=== PATIENT | female | born 1935 | race Two or more races ===

== ENCOUNTER 2019-10-20 17:55 | Inpatient (IN) | payer MEDICARE, MEDICAID ==
[~2019-10-20] VITALS: Ht 170.2 cm; Wt 76.2 kg
--- NOTE | 2019-10-20 18:12 | NUR ---
PT CAME IN FOR L BREAST PAIN "AT THE TIP" PER PT. PT AAO, BREATHING EVEN ADN UNLABORE DON RA W/ NAD NOTED. PT CONNECTED TO THE MONITOR AND POX.
--- NOTE | 2019-10-20 18:28 | NUR ---
EKG AT BEDSIDE
[2019-10-20 18:56] LABS: BASOPHILS # (AUTO) 0.1 /CMM (0.0-0.2); BASOPHILS % (AUTO) 0.9 % (0.0-2.0); EOSINOPHILS % (AUTO) 2.1 % (0.0-6.0); HEMATOCRIT 39 % (33-45); HEMOGLOBIN 12.7 g/dL (11.5-14.8); LYMPHOCYTES # (AUTO) 1.8 /CMM (0.8-4.8); LYMPHOCYTES % (AUTO) 23.8 % (20.0-44.0); MEAN CORPUSCULAR HGB CONC 33 g/dl (31.0-36.0); MEAN CORPUSCULAR VOLUME 96 fL (82-100); MONOCYTES # (AUTO) 0.5 /CMM (0.1-1.30); MONOCYTES % (AUTO) 6.9 % (2.0-12.0); NEUTROPHILS # (AUTO) 4.9 /CMM (1.8-8.9); NEUTROPHILS % (AUTO) 66.3 % (43.0-81.0); PLATELET COUNT (AUTO) 131 /CMM (150-450); RED BLOOD CELL COUNT(AUTO) 4.05 MIL/uL (4.0-5.2); WHITE BLOOD COUNT (AUTO) 7.4 K/uL (4.3-11.0)
[2019-10-20 19:09] LABS: CALCIUM, SERUM 8.6 mg/dL (8.5-10.1); CARBON DIOXIDE 28 mmol/L (21-32); CHLORIDE 104 mmol/L (98-107); CREATININE 1.3 mg/dL (0.6-1.3); GLUCOSE 95 mg/dL (74-106); SODIUM SERUM 139 mmol/L (136-145); UREA NITROGEN, BLOOD 34 mg/dL (7-18)
--- NOTE | 2019-10-20 20:00 | NUR ---
CALLED NURSING SUP FOR TELE BED
--- NOTE | 2019-10-20 20:02 | NUR ---
CALLED [facility], PAGED DR ANTHONY
[2019-10-20] MEDS ORDERED: hydrALAZINE HCL IV 20 MG VIAL IV PRN (21:00)
[2019-10-20] MEDS ORDERED: hydrALAZINE HCL IV 20 MG VIAL ONE (21:08)
--- NOTE | 2019-10-20 21:44 | NUR ---
REPORT GIVEN TO JOESPH HEWITT
[2019-10-20 21:45] VITALS: BP_SYST 100; BP_SYST 177; BP_DIAS 57; BP_DIAS 82
--- NOTE | 2019-10-20 21:45 | NUR ---
RN NOTE: RECEIVED PATIENT FROM ER VIA ACLS PROTOCOL. PATIENT IS AN 84 YEAR OLD FEMALE WITH DX: CHEST PAIN. AAOX3. NO RESPIRATORY DISTRESS. PATIENT'S O2 SAT 98% ON RA, TOLERATING WELL. VITAL SIGNS TAKEN. PLACED ON ORCHID TRANSPLANTER SHOWING NSR. PHOTOS OF SKIN ISSUES TAKEN AND PLACED IN CHART. SAFETY PRECAUTIONS IMPLEMENTED. BED LOCKED, ALARM ON, AND IN LOWEST POSITION. PATIENT USES BEDSIDE COMMODE WITH 1-PERSON ASSIST FOR SAFETY. (R) WRIST G22 LEAKING. IV LINE REMOVED AND WILL REINSERT A NEW IV ACCESS. ALL NEEDS WILL BE ATTENDED TO. PATIENT HAS SIGNED POLST, FULL CODE. DR. ANTHONY MADE AWARE. CALL LIGHT PLACED WITHIN REACH. WILL CONT. TO MONITOR.
--- NOTE | 2019-10-20 21:50 | NUR ---
RN NOTE: PATIENT'S BLOOD PRESSURE IS 177/82 AND HR 72. PATIENT RECEIVED HYDRALAZINE IV IN THE ER AT 2104. WILL CONT. TO MONITOR BP.
[2019-10-20] MEDS ORDERED: MAGNESIUM HYDROXIDE 30 ML UDC PO PRN (22:30)
[2019-10-20] MEDS ORDERED: TEMAZEPAM 15 MG CAPSULE PO PRN (22:30)
[2019-10-20] MEDS ORDERED: ONDANSETRON HCL/PF 4 MG/2 ML VIAL IVP PRN (22:30)
[2019-10-20] MEDS: ACETAMINOPHEN 325 MG TABLET PO PRN (22:44)
[2019-10-20] MEDS: MAG HYDROX/AL HYDROX/SIMETH 30 ML UDC PO PRN (22:44)
[2019-10-20 22:48] LABS: ALBUMIN 3.9 g/dL (3.4-5.0); BILIRUBIN,TOTAL 0.2 mg/dL (0.2-1.0); TOTAL PROTEIN, SERUM 7.4 g/dL (6.4-8.2)
[2019-10-21] VITALS (7 sets, daily range): BP systolic 93–192; BP diastolic 49–158
--- NOTE | 2019-10-21 00:15 | NUR ---
RN NOTE: DR. ANTHONY AT BEDSIDE. MD MADE AWARE THAT PATIENT IS HARD STICK. ATTEMPTED TO INSERT A NEW IV LINE X 2. PER DR. ANTHONY, DO NOT INSERT ANY MORE IV LINES AND STATED HE DOES NOT WANT TO ORDER MIDLINE OR PICC LINE. PATIENT ALSO REFUSED FURTHER IV INSERTION, MIDLINE, OR PICC LINE. RISKS AND CONSEQUENCES EXPLAINED TO PATIENT. PER MD, ONLY INSERT AN IV IF THERE IS AN EMERGENCY. CHARGE NURSE ALSO MADE AWARE AND ANOTHER RN NEO WITNESS. WILL CONT. TO MONITOR FOR CHANGES. Addendum: 10/21/19 at 0031 by MAYUR MARQUEZ RN PATIENT IS AAOX4 AND REFUSING IV INSERTION. Addendum: 10/21/19 at 0756 by MAYUR MARQUEZ RN NOTIFIED DR. ANTHONY THAT PATIENT'S BP REMAINS HIGH, 159/70. NEW ORDER FOR CLONIDINE RECEIVED. NOTED AND CARRIED OUT.
[2019-10-21] MEDS: CLONIDINE HCL 0.1 MG TABLET PO PRN ×2 (00:57→19:51)
[2019-10-21] MEDS ORDERED: HYDROCODONE/APAP 5/325MG 1 EACH TABLET PO PRN (02:00)
[2019-10-21] MEDS ORDERED: AMLO10TA7 PO (03:24)
[2019-10-21] MEDS ORDERED: APIX2.5T PO (03:24)
[2019-10-21] MEDS ORDERED: ALEN70TA6 PO (03:24)
[2019-10-21] MEDS ORDERED: CYCL5TAB PO (03:24)
[2019-10-21] MEDS ORDERED: CALC1TAB90 PO (03:24)
[2019-10-21] MEDS ORDERED: CELE100C PO (03:24)
[2019-10-21] MEDS ORDERED: LOSA25TA27 PO (03:24)
[2019-10-21] MEDS ORDERED: RANI150C4 PO (03:24)
[2019-10-21] MEDS ORDERED: GABA-532 PO (03:24)
[2019-10-21] MEDS ORDERED: AMIO200T4 PO (03:24)
[2019-10-21] MEDS ORDERED: ATOR20TA PO (03:24)
[2019-10-21] MEDS ORDERED: ESCI20TA PO (03:24)
[2019-10-21] MEDS ORDERED: METO50TA16 PO (03:24)
[2019-10-21] MEDS ORDERED: PRIM250T32 PO (03:24)
[2019-10-21] MEDS ORDERED: CYCLOBENZAPRINE 10 MG TABLET PO PRN (06:00)
[2019-10-21] MEDS: MAG HYDROX/AL HYDROX/SIMETH 30 ML UDC PO PRN ×2 (06:49→20:01)
[2019-10-21 07:10] LABS: BASOPHILS % (AUTO) 0.4 % (0.0-2.0); EOSINOPHILS % (AUTO) 2.6 % (0.0-6.0); HEMATOCRIT 37 % (33-45); HEMOGLOBIN 12.2 g/dL (11.5-14.8); LYMPHOCYTES # (AUTO) 1.4 /CMM (0.8-4.8); LYMPHOCYTES % (AUTO) 23.1 % (20.0-44.0); MEAN CORPUSCULAR HGB CONC 33 g/dl (31.0-36.0); MEAN CORPUSCULAR VOLUME 96 fL (82-100); MONOCYTES # (AUTO) 0.4 /CMM (0.1-1.30); MONOCYTES % (AUTO) 7.4 % (2.0-12.0); NEUTROPHILS % (AUTO) 66.5 % (43.0-81.0); PLATELET COUNT (AUTO) 148 /CMM (150-450); RED BLOOD CELL COUNT(AUTO) 3.89 MIL/uL (4.0-5.2)
--- NOTE | 2019-10-21 07:30 | NUR ---
RN OPENING NOTE RECEIVED PATIENT IN STABLE CONDITION FROM NITRIC ACID PLANT OPERATOR NURSE. PATIENT IS A/O X3, ON ROOM AIR SATURATING WELL @ 92%. ON TELE MONITOR WITH SINUS RHYTHM ON THE MONITOR. PATIENT IS ABLE TO MAKE NEEDS KNOWN, USES BED SIDE COMMODE. PATIENT HAS NO IV ACCESS, NITRIC ACID PLANT OPERATOR TRIED PUTTING IN AN IV BUT WAS UNABLE TO, ASKED FOR MIDLINE PLACEMENT, DR SAID IT IS UNNECESSARY, MOST LIKELY WILL BE GOING HOME TODAY IF CLEARED BY RESIDENTIAL BUILDER. SAFETY MAINTAINED, CALL LIGHT WITHIN REACH, WILL CONTINUE TO MONITOR.
--- NOTE | 2019-10-21 07:35 | NUR ---
RN CLOSING NOTES: BEDSIDE REPORT GIVEN TO AM SHIFT NURSE. ENDORSED THAT PATIENT HAS NO IV ACCESS AND REFUSING IV INSERTION. PATIENT IS AAOX4. NO C/O CHEST PAIN AT THIS TIME. SOME MED RECON WAS DONE. DR. ANTHONY AWARE. ENDORSED TO AM SHIFT NURSE FOR CONTINUITY OF CARE AND TO NOTIFY AM MED RECON NURSE TO VERIFY OTHER MEDS.
[2019-10-21 07:37] LABS: CHOLESTEROL 141 mg/dL (<200); HDL CHOLESTEROL 66 mg/dL (40-60); LDL 64 mg/dL (0-99); TRIGLYCERIDES 54 mg/dL (30-150)
[2019-10-21 07:44] LABS: ALANINE AMINOTRANSFERASE 21 U/L (12-78); ALBUMIN 3.4 g/dL (3.4-5.0); ALKALINE PHOSPHATASE 78 U/L (46-116); ASPARTATE AMINOTRANSFERASE 17 U/L (15-37); B-TYPE NATRIURETIC PEPTIDE 508 PG/ML (0-125); BILIRUBIN,TOTAL 0.2 mg/dL (0.2-1.0); CALCIUM, SERUM 8.3 mg/dL (8.5-10.1); CARBON DIOXIDE 26 mmol/L (21-32); CHLORIDE 107 mmol/L (98-107); GLUCOSE 101 mg/dL (74-106); MAGNESIUM 2.1 mg/dL (1.8-2.4); PHOSPHORUS 3.3 mg/dL (2.5-4.9); POTASSIUM 4.3 mmol/L (3.5-5.1); SODIUM SERUM 140 mmol/L (136-145); TOTAL PROTEIN, SERUM 6.4 g/dL (6.4-8.2); UREA NITROGEN, BLOOD 28 mg/dL (7-18)
--- NOTE | 2019-10-21 08:39 | NUR ---
WOUND CARE CONSULT: PT PRESENTS WITH PATCHY RED AREAS TO ELBOWS AND BUTTOCKS WHICH PT STATES IS PSORIASIS. RECOMMENDATIONS MADE FOR SKIN PROTECTION. PT IS CONTINENT AT THIS TIME AND ABLE TO ASSIST WITH TURNING AND REPOSITIONING IN BED. WILL SEE PRN. CURRENT FACUNDO SCORE IS 15. IN AGREEMENT WITH PLAN OF CARE.
[2019-10-21] MEDS ORDERED: ASPIRIN EC 325 MG TABLET.DR PO SCH (09:00)
[2019-10-21] MEDS: ASPIRIN EC 81 MG TABLET.DR PO SCH (09:05)
[2019-10-21] MEDS: ESCITALOPRAM OXALATE (10 MG) 10 MG TABLET PO SCH (09:05)
[2019-10-21] MEDS: AMLODIPINE BESYLATE 10 MG TABLET PO SCH (09:06)
[2019-10-21] MEDS: GABAPENTIN 100 MG CAPSULE PO SCH ×2 (09:06→17:57)
[2019-10-21] MEDS: DOCUSATE SODIUM 100 MG CAPSULE PO SCH ×2 (09:06→17:57)
[2019-10-21] MEDS: PANTOPRAZOLE 40 MG TABLET.DR PO SCH (09:07)
[2019-10-21] MEDS: AMIODARONE HCL 200 MG TABLET PO SCH (09:07)
[2019-10-21] MEDS: FAMOTIDINE (20 MG) 20 MG TABLET PO SCH ×2 (09:07→21:09)
[2019-10-21] MEDS: PRIMIDONE 250 MG TABLET PO SCH (09:08)
[2019-10-21] MEDS: APIXABAN 2.5 MG TABLET PO SCH ×2 (09:08→18:00)
[2019-10-21] MEDS: LOSARTAN POTASSIUM 25 MG TABLET PO SCH (09:09)
[2019-10-21] MEDS: METOPROLOL TARTRATE 50 MG TABLET PO SCH ×2 (09:09→17:58)
[2019-10-21] MEDS ORDERED: Z GUARD REMEDY 2 OZ OINT TP PRN (09:30)
[2019-10-21] MEDS ORDERED: CT SWABBABLE VALVE TRANS SET 1 EA INFUS.SET MC ONE (11:43)
[2019-10-21] MEDS ORDERED: IOHEXOL-350 100 ML VIAL IV ONE (11:43)
[2019-10-21] MEDS ORDERED: IV NS 0.9% 250 ML IV ONE (11:44)
--- NOTE | 2019-10-21 11:49 | NUR ---
RN ROUNDING NOTES CARDIAC DETECTIVE SUPERVISOR PICKED UP THE PATIENT FOR THE CT ANGIO OF THE HEART. CONSENT IS SIGNED AND PLACED IN THE CHART. 18 GAUGE IV WAS PLACED ON THE RIGHT AC BY THE DETECTIVE SUPERVISOR NURSE. PATIENT IN STABLE CONDITION, TAKEN TO DETECTIVE SUPERVISOR VIA WHEELCHAIR.
[2019-10-21] MEDS ORDERED: METOPROLOL TARTRATE INJ 5 MG/5 ML AMPUL ONE (11:53)
[2019-10-21] MEDS ORDERED: METOPROLOL TARTRATE INJ 5 MG/5 ML AMPUL IVP PRN ×2 (12:00→14:30)
[2019-10-21] MEDS ORDERED: NITROGLYCERIN 0.4 MG/TAB BOTTLE SL ONE ×2 (12:00→14:30)
[2019-10-21] MEDS ORDERED: NITROGLYCERIN 0.4 MG/TAB BOTTLE ONE (12:08)
--- NOTE | 2019-10-21 19:05 | NUR ---
SENIOR INSTRUCTOR NOTE RECEIVED PT IN STABLE CONDITION A/O X3, NOTED TO BE WATCHING TV IN BED. NO SIGNS OF SOB OR DISTRESS, NO C/O PAIN OR N/V. IV IN RFA #[address] S/L. TELE MONITOR: SINUS XOCHITL 56. ALL CURRENT NEEDS ATTENDED TO. BED LOW, LOCKED, UPPER RAILS UP, AND CALL LIGHT WITHIN REACH. WILL CONT. TO MONITOR.
--- NOTE | 2019-10-21 19:30 | NUR ---
RN CLOSING NOTES ENDORSED PATIENT TO OBSTETRICS GYN PHYSICIAN NURSE TO CONTINUE CARE. NO ACUTE CHANGES TO PATIENT CONDITION DURING MY SHIFT. NEW IV WAS PLACED BY MEDICAL REFERRAL COORDINATOR ON RIGHT FOREARM #18, INTACT PATENT AND FLUSHED WELL. SAFETY MAINTAINED, CALL LIGHT WITHIN REACH, WILL CONTINUE TO MONITOR.
[2019-10-21] MEDS: ACETAMINOPHEN 325 MG TABLET PO PRN (19:51)
--- NOTE | 2019-10-21 19:52 | NUR ---
DEBRANDER NOTE PT NOTED WITH BP: 192/74 PRN CLONODINE 0.1 MG PO GIVEN. WILL CONT. TO MONITOR.
[2019-10-21] MEDS: ATORVASTATIN 10 MG TABLET PO SCH (21:09)
[2019-10-22] VITALS (7 sets, daily range): BP systolic 110–179; BP diastolic 61–76
--- NOTE | 2019-10-22 06:16 | NUR ---
AIR HOLE DRILLER NOTE PT REMAINS IN STABLE CONDITION A/O X3, RESTING IN BED. NO SIGNS OF SOB OR DISTRESS, NO C/O PAIN OR N/V. IV IN RFA #[address] S/L. TELE MONITOR: SINUS XOCHITL 51. ALL CURRENT NEEDS ATTENDED TO. BED LOW, LOCKED, UPPER RAILS UP, AND CALL LIGHT WITHIN REACH. WILL CONT. TO MONITOR AND ENDORSE TO NEXT SHIFT FOR RUBEN.
[2019-10-22 06:40] LABS: BASOPHILS % (AUTO) 0.6 % (0.0-2.0); HEMATOCRIT 40 % (33-45); HEMOGLOBIN 13.2 g/dL (11.5-14.8); LYMPHOCYTES # (AUTO) 1.7 /CMM (0.8-4.8); LYMPHOCYTES % (AUTO) 28.3 % (20.0-44.0); MEAN CORPUSCULAR HGB CONC 33 g/dl (31.0-36.0); MEAN CORPUSCULAR VOLUME 95 fL (82-100); MONOCYTES # (AUTO) 0.6 /CMM (0.1-1.30); MONOCYTES % (AUTO) 10.1 % (2.0-12.0); NEUTROPHILS # (AUTO) 3.6 /CMM (1.8-8.9); PLATELET COUNT (AUTO) 144 /CMM (150-450); RED BLOOD CELL COUNT(AUTO) 4.16 MIL/uL (4.0-5.2); WHITE BLOOD COUNT (AUTO) 6.1 K/uL (4.3-11.0)
[2019-10-22 06:46] LABS: CALCIUM, SERUM 8.6 mg/dL (8.5-10.1); CREATININE 1.1 mg/dL (0.6-1.3)
[2019-10-22] MEDS: GABAPENTIN 100 MG CAPSULE PO SCH ×2 (08:05→17:23)
[2019-10-22] MEDS: PANTOPRAZOLE 40 MG TABLET.DR PO SCH (08:05)
[2019-10-22] MEDS: ESCITALOPRAM OXALATE (10 MG) 10 MG TABLET PO SCH (08:05)
[2019-10-22] MEDS: ASPIRIN EC 81 MG TABLET.DR PO SCH (08:05)
[2019-10-22] MEDS: DOCUSATE SODIUM 100 MG CAPSULE PO SCH ×2 (08:05→17:23)
[2019-10-22] MEDS: FAMOTIDINE (20 MG) 20 MG TABLET PO SCH ×2 (08:05→21:06)
[2019-10-22] MEDS: PRIMIDONE 250 MG TABLET PO SCH (08:06)
[2019-10-22] MEDS: APIXABAN 2.5 MG TABLET PO SCH ×2 (08:06→17:24)
[2019-10-22] MEDS: METOPROLOL TARTRATE 50 MG TABLET PO SCH ×2 (08:06→17:24)
[2019-10-22] MEDS: AMLODIPINE BESYLATE 10 MG TABLET PO SCH (08:07)
[2019-10-22] MEDS: LOSARTAN POTASSIUM 25 MG TABLET PO SCH (08:07)
[2019-10-22] MEDS: AMIODARONE HCL 200 MG TABLET PO SCH (08:09)
--- NOTE | 2019-10-22 08:15 | NUR ---
RN NOTE; PATIENT RECEIVED ALERT AWAKE ORIENTED X 3. ON ROOM AIR, NO BREATHING DISTRESS NOTED. DENIES CHEST PAIN & DISCOMFORT. SAFETY MEASURES OBSERVED. ENCOURAGE PATIENT TO USE CALL LIGHT FOR ASSISTANCE. CONTINUE WITH PLAN OF CARE.
[2019-10-22] MEDS ORDERED: VALS80TA2 PO (12:34)
--- NOTE | 2019-10-22 18:31 | NUR ---
RN NOTE: NO SIGNIFICANT CHANGES NOTED DURING SHIFT. NO FALL/INJURY NOTED. PLAN TO DISCHARGE TODAY TO [facility], REPORT GIVEN TO BETTIE RN DRY HOUSE TENDER AT SNF. [place] DAUGHTER MADE AWARE. PATIENT AGREE WITH THE PLAN. SKIN PICTURES TAKEN & PLACED IN CHART. AMBULANCE PICK TIME IS 1930. WILL CONTINUE TO MONITOR.
--- NOTE | 2019-10-22 20:13 | NUR ---
TELE1/RN RECEIVE PATIENT AWAKE, ALERT, ORIENTED, COMFORABLE, NO C/O PAIN, NO DISTRESS NOTED, TO D/C TO SNF TONIGHT, WAITING FOR THE AMBULANCE.
[2019-10-22] MEDS: ATORVASTATIN 10 MG TABLET PO SCH (21:06)
--- NOTE | 2019-10-22 21:29 | NUR ---
DALIA/RN MADE A F/U CALL TO [facility], REGIONAL CLINICAL RESEARCH ASSOCIATE IN 30 MINUTES.
--- NOTE | 2019-10-22 22:34 | NUR ---
DALIA/RN AMBULANCE IS HERE, REPORT GIVEN TO EMT, PAPER WORKS FOR THE FACILITY WAS GIVEN TO EMT, TELE BOX AND IV WERE REMOVED. PATIENT LEFT THE FLOOR AT ABOUT 2235 IN STABLE CONDITION.
[2019-10-23] MEDS ORDERED: ALENDRONATE 70 MG TABLET PO SCH (07:30)
[2019-10-23] MEDS ORDERED: VALSARTAN 80 MG TABLET PO SCH (09:00)
== END 2019-10-22 23:56 | DRG 302 ==
LOC: ER 18:04 → TELE1 20:31
PROVIDERS: ADMIT Internal Medicine; ATTEND Nurse Practitioner Acute Care
DX: I25.10 Atherosclerotic heart disease of native coronary artery without angina pectoris (principal); N17.0 Acute kidney failure with tubular necrosis; R07.9 Chest pain, unspecified; E78.5 Hyperlipidemia, unspecified; I10 Essential (primary) hypertension; I48.0 Paroxysmal atrial fibrillation; G89.4 Chronic pain syndrome; Z95.5 Presence of coronary angioplasty implant and graft; Z87.891 Personal history of nicotine dependence; Z95.2 Presence of prosthetic heart valve; G25.0 Essential tremor; Z86.718 Personal history of other venous thrombosis and embolism; Z86.711 Personal history of pulmonary embolism; M81.0 Age-related osteoporosis without current pathological fracture; M19.90 Unspecified osteoarthritis, unspecified site; D69.6 Thrombocytopenia, unspecified; Z96.651 Presence of right artificial knee joint; Z79.01 Long term (current) use of anticoagulants
CPT/HCPCS: 36415; 71045-TC; 75574; 80048-TC; 80053-TC; 80061-TC; 80076-TC; 83735-TC; 83880; 84100-TC; 84443-TC; 84484-TC; 85025-TC; 87081-TC; 93307-TC; 97116-TC; 97530-TC; G0378; J0360; J3490; J7050; Q9967